=== PATIENT | male | born 1995 | race Caucasian/White ===

== ENCOUNTER 2018-06-18 14:51 | Emergency (ER) | payer BC, OTHER ==
[~2018-06-18] VITALS: Ht 177.8 cm; Wt 113.4 kg
--- NOTE | 2018-06-18 15:17 | PHYS DOC ---
Adult General Chief Complaint Chief Complaint: SHOULDER INJURY HPI HPI 22-year-old male presents with right shoulder pain. 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 It jerked his shoulder forward. Patient is concerned it might be dislocated. He has had a dislocation several years ago on the same side. She has pain in that shoulder and is holding his arm down and across his abdomen. He denies any other injuries. He denies hitting his head or losing consciousness. Review of Systems Review of Systems Constitutional: Denies fever or chills [] Eyes: Denies change in visual acuity, redness, or eye pain [] HENT: Denies nasal congestion or sore throat [] Respiratory: Denies cough or shortness of breath [] Cardiovascular: No additional information not addressed in HPI [] GI: Denies abdominal pain, nausea, vomiting, bloody stools or diarrhea [] : Denies dysuria or hematuria [] Musculoskeletal: Right shoulder pain[] Integument: Denies rash or skin lesions [] Neurologic: Denies headache, focal weakness or sensory changes [] Endocrine: Denies polyuria or polydipsia [] All other systems were reviewed and found to be within normal limits, except as documented in this note. Current Medications Current Medications Current Medications Medications (Trade) Dose Ordered Sig/Ca Start Time Stop Time Status Last Admin Dose Admin Morphine Sulfate (Morphine 2mg Syringe) 2 mg 1X ONCE 06/18/18 15:15 06/18/18 15:16 Ondansetron HCl (Zofran) 4 mg 1X ONCE 06/18/18 15:15 06/18/18 15:16 Allergies Allergies Allergies Coded Allergies Type Severity Reaction Last Updated Verified No Known Drug Allergies 06/18/18 No Physical Exam Physical Exam Constitutional: Well developed, well nourished, no acute distress, non-toxic appearance. [] HENT: Normocephalic, atraumatic, bilateral external ears normal, oropharynx moist, no oral exudates, nose normal. [] Eyes: PERRLA, EOMI, conjunctiva normal, no discharge. [] Neck: Normal range of motion, no tenderness, supple, no stridor. [] Cardiovascular:Heart rate regular rhythm, no murmur [] Lungs & Thorax: Bilateral breath sounds clear to auscultation [] Abdomen: Bowel sounds normal, soft, no tenderness, no masses, no pulsatile masses. [] Skin: Warm, dry, no erythema, no rash. [] Back: No tenderness, no CVA tenderness. [] Extremities: Right shoulder appears lower than the left. It also appears more anterior than the left. Range of motion exercises deferred due to pain.[] Neurologic: Alert and oriented X 3, normal motor function, normal sensory function, no focal deficits noted. [] Psychologic: Affect normal, judgement normal, mood normal. [] EKG EKG [] Radiology/Procedures Radiology/Procedures [] Impressions: Portable right shoulder, 3 views, 06/18/2018: HISTORY: Injury There is anterior dislocation of the humeral head relative to the glenoid fossa. No fracture is identified. IMPRESSION: Anterior right shoulder dislocation Electronically signed by: Geronimo Fields MD (06/18/2018 3:30 PM) [facility] DICTATED AND SIGNED BY: GERONIMO FIELDS MD DATE: 06/18/18 1530 CC: VIVIAN MANSFIELD DO; PCP,NO 2 right shoulder study Clinical indications: Post reduction images. IMPRESSION: There is an AP view of the right shoulder performed at 4:00 p.m. which demonstrates medial dislocation of the humeral head with respect to the glenoid fossa. Portable AP view of the right shoulder was performed at 4:06 PM which demonstrates reduction of the previously seen right glenohumeral joint dislocation. Electronically signed by: Adebayo Bynum MD (06/18/2018 5:22 PM) [place] [id number] DICTATED AND SIGNED BY: ADEBAYO BYNUM MD DATE: 06/18/18 1720 CC: VIVIAN MANSFIELD DO; PCP,NO Course & Med Decision Making Course & Med Decision Making Pertinent Labs and Imaging studies reviewed. (See chart for details) We gave the patient 6mg of morphine and 2 mg of Ativan. The patient appeared to be relaxants we attempted reduction 2 times. The symptoms were unsuccessful. The patient was just unable to relax. I offered to sedate the patient for the reduction and the patient agreed with this plan. A reduction was successful. See reduction note below for more details. There were no complications. The patient is stable for discharge at this time. The patient has a ride home. Right Shoulder Reduction: The procedure is a right shoulder reduction due to dislocation. The appropriate timeout was performed prior to the procedure. All parties involved were in agreement with the site and procedure. Respiratory therapy was available in the room. Oxygen by nasal cannula was placed. The patient was hooked up the appropriate monitors. I then personally gave the patient 250 mg of ketamine IV followed by 10 mL flush. Once the patient was sedated, we made 3 attempts at reduction. The final method with traction countertraction was successful. A repeat x-ray of the shoulder did show reduction was successful. The patient was then observed until he woke back up. There were no complications during his sedation. He was placed in a shoulder immobilizer. [] Dragon Disclaimer Dragon Disclaimer This electronic medical record was generated, in whole or in part, using a voice recognition dictation system. Departure Departure: Impression: Primary Impression: Dislocation of right shoulder joint Disposition: 01 HOME, SELF-CARE Condition: IMPROVED Referrals: PCP,NO (PCP) Patient Instructions: Shoulder Dislocation, [id number] Problem Qualifiers Primary Impression: Dislocation of right shoulder joint Encounter type: initial encounter Qualified Codes: S43.004A - Unspecified dislocation of right shoulder joint, initial encounter VIVIAN MANSFIELD DO Jun 18, 2018 15:17
[2018-06-18] MEDS: ONDANSETRON PF 4 MG/2 ML VIAL. IV ONE (15:21)
[2018-06-18] MEDS: MORPHINE SULFATE 2 MG/ML DISP.SYRIN. IV ONE (15:23)
--- NOTE | 2018-06-18 15:35 | RAD ---
Portable right shoulder, 3 views, 06/18/2018: HISTORY: Injury There is anterior dislocation of the humeral head relative to the glenoid fossa. No fracture is identified. IMPRESSION: Anterior right shoulder dislocation Electronically signed by: Geronimo Fields MD (06/18/2018 3:30 PM) [facility]
[2018-06-18] MEDS: LORazepam 2 MG/ML VIAL IV ONE (15:39)
[2018-06-18] MEDS: MORPHINE SULFATE 4 MG/ML DISP.SYRIN. IV ONE (15:42)
[2018-06-18] MEDS: KETAMINE HCL 500 MG/10 ML VIAL. IV ONE (16:32)
--- NOTE | 2018-06-18 17:27 | RAD ---
2 right shoulder study Clinical indications: Post reduction images. IMPRESSION: There is an AP view of the right shoulder performed at 4:00 p.m. which demonstrates medial dislocation of the humeral head with respect to the glenoid fossa. Portable AP view of the right shoulder was performed at 4:06 PM which demonstrates reduction of the previously seen right glenohumeral joint dislocation. Electronically signed by: Adebayo Bynum MD (06/18/2018 5:22 PM) [id number]
[2018-06-18 18:10] VITALS: BP 151/90
== END 2018-06-18 18:10 | disposition home or self-care (01) ==
LOC: ER 14:51
DX: S53.114A Anterior dislocation of right ulnohumeral joint, initial encounter (principal); W01.0XXA Fall on same level from slipping, tripping and stumbling without subsequent striking against object, initial encounter; Y93.01 Activity, walking, marching and hiking; Y92.89 Other specified places as the place of occurrence of the external cause; Y99.0 Civilian activity done for income or pay
CPT/HCPCS: 23650; 73030; 96374; 99285; J2060; J2270; J2405; J3490; 99152

== ENCOUNTER 2018-09-09 02:29 | Emergency (ER) | payer OTHER ==
[~2018-09-09] VITALS: Ht 177.8 cm; Wt 119.7 kg
[2018-09-09 02:30] VITALS: BP 151/90
[2018-09-09] MEDS ORDERED: DIPHTH,PERTUSS(ACELL),TET TOX 0.5 ML DISP.SYRIN. VAX IM ONE ×2 (02:45→02:54)
--- NOTE | 2018-09-09 02:52 | PHYS DOC ---
Past History Past Medical History: Anxiety Past Surgical History: No Surgical History Alcohol Use: Occasionally Drug Use: None Adult General Chief Complaint Chief Complaint: LACERATION/AVULSION HPI HPI Presents with laceration to his left index finger. Patient states that he was cutting a zip line off of the new fishing pole with a brand-new knife and cut his finger. He denies any other injuries. He states that sensation is intact. He reports pain as being mild. Review of Systems Review of Systems Constitutional: Denies fever or chills [] Respiratory: Denies cough or shortness of breath [] Cardiovascular: No additional information not addressed in HPI [] Musculoskeletal: Positive left index finger pain [] Integument: Positive laceration left index finger[] Current Medications Current Medications Current Medications Medications (Trade) Dose Ordered Sig/Ca Start Time Stop Time Status Last Admin Dose Admin Diphtheria/ Tetanus/Acell Pertussis (Boostrix) 0.5 ml ONCE ONCE 09/09/18 02:45 09/09/18 02:46 UNV Allergies Allergies Allergies Coded Allergies Type Severity Reaction Last Updated Verified No Known Drug Allergies 06/18/18 No Physical Exam Physical Exam Constitutional: Well developed, well nourished, no acute distress, non-toxic appearance. [] Cardiovascular:Heart rate regular rhythm, no murmur [] Lungs & Thorax: Bilateral breath sounds clear to auscultation [] Skin: There is a 1 cm laceration to the dorsal aspect the left index finger between the proximal and distal interphalangeal joints. Laceration is linear and extends into subcutaneous tissue with sharp margins. [] EKG EKG [] Radiology/Procedures Radiology/Procedures [] Course & Med Decision Making Course & Med Decision Making Pertinent Labs and Imaging studies reviewed. (See chart for details) Laceration Repair by me: Anesthesia: None required Location: Dorsal aspect of left index finger Tendon/Joint/Nerves: No injury Foreign body: None detected after copious irrigation and exploration Technique: Dermabond Complexity: No subcutaneous sutures/mucosal repair/edge excision Post Closure Length: 1 cm Dragon Disclaimer Dragon Disclaimer This electronic medical record was generated, in whole or in part, using a voice recognition dictation system. Departure Departure: Impression: Primary Impression: Finger laceration Disposition: 01 HOME, SELF-CARE Condition: STABLE Referrals: PCP,NO (PCP) Patient Instructions: Laceration Care, Adult Problem Qualifiers Primary Impression: Finger laceration Encounter type: initial encounter Finger: index finger Damage to nail status: without damage Foreign body presence: without foreign body Laterality: left Qualified Codes: S61.211A - Laceration without foreign body of left index finger without damage to nail, initial encounter JING CARDONA Jr., DO Sep 09, 2018 02:52
== END 2018-09-09 03:00 | disposition home or self-care (01) ==
LOC: ER 02:29
DX: S61.211A Laceration without foreign body of left index finger without damage to nail, initial encounter (principal); F41.9 Anxiety disorder, unspecified; W26.0XXA Contact with knife, initial encounter; Y93.89 Activity, other specified; Y92.89 Other specified places as the place of occurrence of the external cause; Y99.8 Other external cause status
CPT/HCPCS: 12001; 90471; 90715; 99283-25

== ENCOUNTER 2019-05-11 16:40 | Emergency (ER) | payer OTHER ==
[~2019-05-11] VITALS: Ht 177.8 cm; Wt 117.9 kg
[2019-05-11] MEDS ORDERED: LIDOCAINE 1%/EPI 1:100,000 20 ML VIAL. IJ ONE (17:00)
[2019-05-11 17:13] VITALS: BP 161/117
[2019-05-11] MEDS ORDERED: LIDOCAINE 2% 20 ML VIAL. IJ ONE (17:15)
--- NOTE | 2019-05-11 17:48 | PHYS DOC ---
Past History Past Medical History: Anxiety, Depression Past Surgical History: No Surgical History Alcohol Use: None Drug Use: None Adult General Chief Complaint Chief Complaint: LACERATION/AVULSION HPI HPI Patient is a 23-year-old male presenting with laceration of the index finger he was trying to open a container dog treats with his pocketknife Current Medications Current Medications Current Medications Medications (Trade) Dose Ordered Sig/Ca Start Time Stop Time Status Last Admin Dose Admin Lidocaine HCl 20 ml 1X ONCE 05/11/19 17:15 05/11/19 17:16 DC Lidocaine/ Epinephrine (Xylocaine 1%-Epi 1:100,000) 20 ml 1X ONCE 05/11/19 17:00 05/11/19 17:01 DC Allergies Allergies Allergies Coded Allergies Type Severity Reaction Last Updated Verified No Known Drug Allergies 06/18/18 No Physical Exam Physical Exam Constitutional: Well developed, well nourished, no acute distress, non-toxic appearance. [] HENT: Normocephalic, atraumatic, bilateral external ears normal, oropharynx moist, no oral exudates, nose normal. [] Eyes: PERRLA, EOMI, conjunctiva normal, no discharge. [] Neck: Normal range of motion, no tenderness, supple, no stridor. [] Skin: Warm, dry, no erythema, no rash. [] Back: No tenderness, no CVA tenderness. [] Extremities: There is a 2.5 Center laceration to the volar pad of the left index finger moderate bleeding no foreign body noted Neurologic: Alert and oriented X 3, normal motor function, normal sensory function, no focal deficits noted. [] Psychologic: Affect normal, judgement normal, mood normal. [] Current Patient Data Vital Signs Vital Signs Date Time Temp Pulse Resp B/P (MAP) Pulse Ox O2 Delivery O2 Flow Rate FiO2 05/11/19 17:13 120 20 98 Room Air Lab Results Noted blood pressure and heart rate likely related to anxiety patient was very nervous about the needle EKG EKG [] Radiology/Procedures Radiology/Procedures [] Course & Med Decision Making Course & Med Decision Making Pertinent Labs and Imaging studies reviewed. (See chart for details) []Tetanus is up-to-date procedure note: Verbal consent obtained the wound was irrigated profusely no foreign body was identified closed with 5-0 nylon simple interrupted sutures for total locations 2.5 cm total Lidocaine subcutaneous was used for anesthesia 2% plain 2 MLS patient tolerated well without difficulty one care instructions were provided Dragon Disclaimer Dragon Disclaimer This electronic medical record was generated, in whole or in part, using a voice recognition dictation system. Departure Departure: Impression: Primary Impression: Laceration Disposition: 01 HOME, SELF-CARE Condition: STABLE Referrals: PCP,LISS TERRY MD (PCP) Patient Instructions: Laceration Care, Adult NOAH LAZO MD May 11, 2019 17:48
== END 2019-05-11 17:30 | disposition home or self-care (01) ==
LOC: ER 16:40
DX: S61.211A Laceration without foreign body of left index finger without damage to nail, initial encounter (principal); W26.0XXA Contact with knife, initial encounter; Y93.89 Activity, other specified; Y92.89 Other specified places as the place of occurrence of the external cause; Y99.8 Other external cause status
CPT/HCPCS: 12001; 99283